=== PATIENT | male | born 2000 | race Caucasian/White ===

== ENCOUNTER 2019-02-12 10:01 | Emergency (ER) | payer SELFPAY ==
[2019-02-12 10:05] VITALS: BP 147/72; PULSE 98; RESP 16; TEMP 36.8; O2SAT 96
--- NOTE | 2019-02-12 10:14 | W.ED.GENAD ---
Discharge Plan Disposition Patient Disposition: HOME Condition: Stable Discharge Details Chief Complaint: GenMedical Clinical Impression: Tick bite Primary Care Provider: Ciara Chou ED Provider: Fuad Tan Discharge Instructions Instructions: Tick Bite (ED) Additional Instructions: The doxycycline may make you sensitive to the sun over the next 2 to 3 days time. Avoid prolonged exposure. Home to rest today. We will ask care management to help arrange a new physician for you in adult clinic. Return for any acute concern Medical Decision Making 18-year-old male presents after removing 2 ticks of her on an unknown amount of time last night after being in the [place]. He is well-appearing, afebrile, no evidence of rash. Discussed with him empirically prophylaxing against Lyme disease with 200 mg doxycycline single dose. He stable for discharge home. He wishes to establish primary care in an adult clinic and we will help to arrange this for him. HPI General Mode of arrival: ambulatory. Date/Time Provider Initiated Documentation: 02/12/19 10:02. Limitations to Documentation: no limitations. Information obtained by: patient. History of Present Illness 18 year old M presents to the emergency department with the chief complaint of Tick bite x2, described as moderate, and is localized to the upper extremity and lower extremity. Patient reports no radiation. Patient started experiencing this minute(s) and it has been now resolved. No relieving factors improve symptom(s), No exacerbating factors reported . Patient notes no other symptoms.; denies rash. Patient did receive the following treatments prior to arrival, none Related Data Allergies Allergy/AdvReac Type Severity Reaction Status Date / Time No Known Allergies Allergy Unverified 12/31/12 10:44 General Stated Complaint: GenMedical SATYA: 4 Review of Systems Review of Systems No fever, no rash, tics removed without incident. 4 systems reviewed and negative [facility] Medical History Asthma Developmental delay Failure to thrive Gastroesophageal reflux disease Nocturnal enuresis Family History Sister Asthma Grandmother Diabetes Heart disease Grandfather Hypertensive disorder, systemic arterial Hyperlipidemia Mental disorder Mother Mental disorder Social History Smoking/Tobacco Use Status: Never Alcohol Intake: current Alcohol Intake frequency: a few times a month Drug use: Never Substance use type: marijuana Details: marijuana 3x week Exam Narrative Exam Narrative: GEN: awake, alert, oriented 3. Pleasant, well groomed, interactive. HEAD: Normocephalic, atraumatic ENT: Mucous membranes moist, oropharynx unremarkable, External ear exam unremarkable EYES: PERRL, EOMI NECK: Full ROM, no ANAN, no menigismus CHEST/RESP: Nontender, clear to auscultation bilateral, no wheeze/rhonchi/rales CARDIOVASCULAR: RRR, no murmur EXT: Full ROM, no edema, no rash. Question subtle 1 mm area of insect bite right deltoid, left ankle Neuro: Grossly normal neurologic exam, conversant, interactive. Psych: Speech fluent, thoughts congruent, affect normal Course Vital Signs Temperature 36.8 C 02/12/19 10:05 Pulse 98 H 02/12/19 10:05 Respiratory Rate 16 02/12/19 10:05 Blood Pressure 147/72 H 02/12/19 10:05 Pulse Oximetry 96 02/12/19 10:05 Temperature 36.8 C 02/12/19 10:05 Temperature Source Temporal Artery Scan 02/12/19 10:05 Pulse 98 H 02/12/19 10:05 Respiratory Rate 16 02/12/19 10:05 Respiratory Effort Non-Labored 02/12/19 10:09 Respiratory Depth Normal 02/12/19 10:09 Blood Pressure 147/72 H 02/12/19 10:05 Pulse Oximetry 96 02/12/19 10:05 Oxygen Delivery Method Room Air 02/12/19 10:05 Oxygen Flow Rate 0 02/12/19 10:05 Pain Level 0 02/12/19 10:05
--- NOTE | 2019-02-12 10:17 | ED.GENADUL_ITS ---
Discharge Plan Disposition Patient Disposition: HOME Condition: Stable Discharge Details Chief Complaint: GenMedical Clinical Impression: Tick bite Primary Care Provider: Ciara Chou ED Provider: Fuad Tan Discharge Instructions Instructions: Tick Bite (ED) Additional Instructions: The doxycycline may make you sensitive to the sun over the next 2 to 3 days time. Avoid prolonged exposure. Home to rest today. We will ask care management to help arrange a new physician for you in adult clinic. Return for any acute concern Medical Decision Making 18-year-old male presents after removing 2 ticks of her on an unknown amount of time last night after being in the [place]. He is well-appearing, afebrile, no evidence of rash. Discussed with him empirically prophylaxing against Lyme disease with 200 mg doxycycline single dose. He stable for discharge home. He wishes to establish primary care in an adult clinic and we will help to arrange this for him. HPI General Mode of arrival: ambulatory . Date/Time Provider Initiated Documentation: 02/12/19 10:02 . Limitations to Documentation: no limitations . Information obtained by: patient . History of Present Illness 18 year old M presents to the emergency department with the chief complaint of Tick bite x2, described as moderate, and is localized to the upper extremity and lower extremity. Patient reports no radiation. Patient started experiencing this minute(s) and it has been now resolved. No relieving factors improve symptom(s), No exacerbating factors reported . Patient notes no other symptoms.; denies rash. Patient did receive the following treatments prior to arrival, none Related Data Allergies Allergy/AdvReac Type Severity Reaction Status Date / Time No Known Allergies Allergy Unverified 12/31/12 10:44 General Stated Complaint: GenMedical SATYA: 4 Review of Systems Review of Systems No fever, no rash, tics removed without incident. 4 systems reviewed and negative [facility] Medical History Asthma Developmental delay Failure to thrive Gastroesophageal reflux disease Nocturnal enuresis Family History Sister Asthma Grandmother Diabetes Heart disease Grandfather Hypertensive disorder, systemic arterial Hyperlipidemia Mental disorder Mother Mental disorder Social History Smoking/Tobacco Use Status: Never Alcohol Intake: current Alcohol Intake frequency: a few times a month Drug use: Never Substance use type: marijuana Details: marijuana 3x week Exam Narrative Exam Narrative: GEN: awake, alert, oriented 3. Pleasant, well groomed, interactive. HEAD: Normocephalic, atraumatic ENT: Mucous membranes moist, oropharynx unremarkable, External ear exam unremarkable EYES: PERRL, EOMI NECK: Full ROM, no ANNA, no menigismus CHEST/RESP: Nontender, clear to auscultation bilateral, no wheeze/rhonchi/rales CARDIOVASCULAR: RRR, no murmur EXT: Full ROM, no edema, no rash. Question subtle 1 mm area of insect bite right deltoid, left ankle Neuro: Grossly normal neurologic exam, conversant, interactive. Psych: Speech fluent, thoughts congruent, affect normal Course Vital Signs Temperature 36.8 C 02/12/19 10:05 Pulse 98 H 02/12/19 10:05 Respiratory Rate 16 02/12/19 10:05 Blood Pressure 147/72 H 02/12/19 10:05 Pulse Oximetry 96 02/12/19 10:05 Temperature 36.8 C 02/12/19 10:05 Temperature Source Temporal Artery Scan 02/12/19 10:05 Pulse 98 H 02/12/19 10:05 Respiratory Rate 16 02/12/19 10:05 Respiratory Effort Non-Labored 02/12/19 10:09 Respiratory Depth Normal 02/12/19 10:09 Blood Pressure 147/72 H 02/12/19 10:05 Pulse Oximetry 96 02/12/19 10:05 Oxygen Delivery Method Room Air 02/12/19 10:05 Oxygen Flow Rate 0 02/12/19 10:05 Pain Level 0 02/12/19 10:05
[2019-02-12] MEDS: Doxycycline Hyclate 100 MG CAP 200 MG PO (10:33)
[2019-02-12 10:35] VITALS: BP 127/67; PULSE 76; O2SAT 97
== END 2019-02-12 13:05 | disposition home or self-care (01) ==
LOC: ER 10:28
PROVIDERS: Emergency Provider Emergency Medicine; PCP Pediatrics
DX: S40.261A Insect bite (nonvenomous) of right shoulder, initial encounter (principal); S90.562A Insect bite (nonvenomous), left ankle, initial encounter; W57.XXXA Bitten or stung by nonvenomous insect and other nonvenomous arthropods, initial encounter
CPT/HCPCS: 99283

== ENCOUNTER 2019-08-08 15:25 | Emergency (ER) | payer SELFPAY ==
[2019-08-08 15:34] VITALS: BP 119/58; PULSE 68; RESP 16; TEMP 37.2; O2SAT 98
--- NOTE | 2019-08-08 16:05 | W.ED.GENAD ---
Discharge Plan Disposition Patient Disposition: HOME Condition: Improving Discharge Details Chief Complaint: EyeProblem Clinical Impression: Acute conjunctivitis of right eye, Stye Primary Care Provider: Ciara Chou ED Provider: Fuad Tan Home Meds and New Rx's Prescriptions: No Action No Known Home Meds RF: 0 Discharge Instructions Instructions: Conjunctivitis (ED) Additional Instructions: Warm soaks with a clean washcloth 3 times daily for 1 week. Take antibiotic ointment 3 times daily for 5 to 7 days time. Return if you develop pain with movement of the eye, change to vision, facial swelling, or any other acute concerns. Medical Decision Making 18-year-old male awoke with crusting of the right eye, mild injection which she states cleared with use of eyedrops and swelling of the right eyelid. Appears to have an early stye developing but I cannot rule out conjunctivitis. He will benefit from use of erythromycin as well as warm soaks. Do not feel other significant pathology is present. He is stable for discharge to home. HPI General Mode of arrival: ambulatory. Date/Time Provider Initiated Documentation: 08/08/19 15:33. Limitations to Documentation: no limitations. Information obtained by: patient. History of Present Illness 18 year old M presents to the emergency department with the chief complaint of Right eye upper lid swelling with mild crusting this morning, described as mild, and is localized to the eyes and right. Patient reports no radiation. Patient started experiencing this hour(s) and it has been constant. No relieving factors improve symptom(s), No exacerbating factors reported . Patient notes no other symptoms. and other (No change to vision, no headache, no pain with movement of the eye, no facial swelling.); denies fever/chills and headaches. Patient did receive the following treatments prior to arrival, none Related Data Home Medications Medication Instructions Recorded Confirmed Unknown [No Known Home Meds] 08/08/19 08/08/19 Allergies Allergy/AdvReac Type Severity Reaction Status Date / Time No Known Allergies Allergy Unverified 08/08/19 15:39 General Stated Complaint: EyeProblem SATYA: 4 Review of Systems Narrative: 6 systems reviewed and otherwise negative. The gentleman has otherwise been well. [facility]LY [facility] Social History Smoking/Tobacco Use Status: Current every day Tobacco Type: cigarettes Alcohol Intake: former Drug use: Occasionally Substance use type: marijuana Details: marijuana 3x week Do you feel safe at home: Yes Do you feel safe in your relationship?: Yes Exam Narrative Exam Narrative: GEN: awake, alert, oriented 3. Pleasant, well groomed, interactive. HEAD: Normocephalic, atraumatic ENT: Mucous membranes moist, oropharynx unremarkable, External ear exam unremarkable EYES: PERRL, EOMI. the right eye lid is mildly erythematous with subtle swelling. Sclera are clear (patient states he took eyedrops) NECK: Full ROM, no ANNA, no menigismus EXT: Full ROM Neuro: Grossly normal neurologic exam, conversant, interactive. Psych: Speech fluent, thoughts congruent, affect normal Course Vital Signs Vital signs: Vital Signs Temperature 37.2 C 08/08/19 15:34 Pulse 68 08/08/19 15:34 Respiratory Rate 16 08/08/19 15:34 Blood Pressure 119/58 L 08/08/19 15:34 Pulse Oximetry 98 08/08/19 15:34 Temperature 37.2 C 08/08/19 15:34 Temperature Source Tympanic 08/08/19 15:34 Pulse 68 08/08/19 15:34 Respiratory Rate 16 08/08/19 15:34 Respiratory Effort Non-Labored 08/08/19 15:36 Blood Pressure 119/58 L 08/08/19 15:34 Blood Pressure Position Sitting 08/08/19 15:34 Pulse Oximetry 98 08/08/19 15:34 Oxygen Delivery Method Room Air 08/08/19 15:34 Oxygen Flow Rate 0 08/08/19 15:34 Pain Level 2 08/08/19 15:34
[2019-08-08] MEDS: Erythromycin Ophth Oint 3.5 GM TUBE OP (16:13)
[2019-08-08 16:16] VITALS: PULSE 71; TEMP 36.7; O2SAT 98
== END 2019-08-08 16:18 | disposition home or self-care (01) ==
LOC: ER 16:22
PROVIDERS: Emergency Provider Emergency Medicine; PCP Pediatrics
DX: H10.31 Unspecified acute conjunctivitis, right eye (principal); H00.011 Hordeolum externum right upper eyelid
CPT/HCPCS: 99283

== ENCOUNTER 2019-09-08 20:42 | Emergency (ER) | payer SELFPAY ==
[2019-09-08 20:45] VITALS: BP 141/89; PULSE 61; RESP 16; TEMP 36.7; O2SAT 98
[2019-09-08 21:14] VITALS: BP 141/89; PULSE 61; RESP 16; TEMP 36.7; O2SAT 98
--- NOTE | 2019-09-08 21:18 | ED.GENADUL_ITS ---
Discharge Plan Disposition Patient Disposition: HOME Condition: Good Discharge Details Chief Complaint: Orthopedic Clinical Impression: Quadriceps strain Primary Care Provider: Ciara Chou ED Provider: Kortney Lawlre Home Meds and New Rx's Prescriptions: No Action No Known Home Meds RF: 0 Discharge Instructions Instructions: Muscle Strain (ED) Additional Instructions: Rest. Activities as tolerated. Elevate injury to prevent swelling. Ice massage to the area of discomfort for 15 min. 3-5 times daily. Crutches for rest and ambulation. I would recommend for 3 to 5 days Motrin 600 mg every 8 hours with food or Tylenol every 6 hours for soreness if needed over the counter for comfort. Do not take Motrin, ibuprofen or Advil this evening as he receives an injection of Toradol. Followup with orthopedic doctor as discussed if not improving in one week. Return for any worsening or concerns sooner if needed. Stand Alone Forms: Work Release Referrals: Fuad Reed MD [ [facility] STAFF PHYSICIAN] - Medical Decision Making Is a healthy 18-year-old patient presenting to the ER this evening for complaints of right thigh pain. 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 Patient reports he is experienced 2 to 3 days of right thigh pain which is increasingly bothersome now causing limited range of motion and limping gait. Patient ports very difficult to tolerate while working as he is quite active at work. Patient denies numbness, tingling or weakness associated. Patient has no associated abdominal pain on exam. Patient's exam is consistent with proximal thigh quadriceps/groin strain. Distal neurovascularly intact. No bony pain with palpation. I feel fracture is extremely unlikely as does this patient. Will defer any imaging studies at this time recommend conservative treatments for possible groin strain encouraged ice massage and rice. Crutches provided for ambulation. Work note provided as patient is having difficulty ambulating at work at this time. Recommended orthopedic follow-up for reevaluation for any persistence of complaints. Patient agrees with plan of care. The patient was stable and requested discharge. Prior to discharge, my usual and customary return precautions were reviewed with the patient - this included follow-up instructions and reasons to return to the Emergency Department if conditions worsens, does not improve as expected, or other new concerns arise. HPI General Date/Time Provider Initiated Documentation: 01/27/20 21:00 . HPI Narrative: Is a 18-year-old patient presenting for concerns of right thigh pain. Patient reports thigh pain for the last 2 to 3 days now very bothersome when walking. Patient reports pain is reproducible with palpation of the thigh or with range of motion of lifting the right thigh. Patient denies abdominal pain, groin pain or testicular complaints. Patient does recall slipping room when he was crouched on the ground in the kitchen and fell toward his right side while he was at work. Patient reports no immediate pain but pain did develop thereafter. Patient denies numbness, tingling or weakness of the leg. Patient has tried no medications at this time. Patient presents this evening after working as he reports pain is becoming very difficult to work with and quite bothersome. Denies back pain. Denies obvious swelling, skin changes or wounds. Related Data Home Medications Medication Instructions Recorded Confirmed Unknown [No Known Home Meds] 08/08/19 09/08/19 Allergies Allergy/AdvReac Type Severity Reaction Status Date / Time No Known Allergies Allergy Unverified 09/08/19 20:48 General Stated Complaint: Orthopedic SATYA: 4 Review of Systems All systems reviewed & are unremarkable except as noted in HPI and below Constitutional Constitutional: Denies headache(s) ENT Ears, Nose, Mouth, and Throat: Denies headache(s) and Denies neck pain Musculoskeletal Musculoskeletal: Reports abnormal gait (Limping), Denies back pain, Denies deformity, Denies limited range of motion, Denies neck pain, Denies numbness and Denies tingling Integumentary/Breasts Skin/Breast: Denies rash and Denies wounds Neurologic Neurologic: Reports abnormal gait (Limping), Denies headache(s), Denies numbness and Denies tingling [facility] Medical History Asthma outgrown Developmental delay prob ADHD, meds for a while, IEP when younger Failure to thrive resolved Gastroesophageal reflux disease as baby-resolved Nocturnal enuresis resolved Social History Smoking/Tobacco Use Status: Current every day Tobacco Type: cigarettes Alcohol Intake: former Drug use: Occasionally Substance use type: marijuana Details: marijuana 3x week Do you feel safe at home: Yes Do you feel safe in your relationship?: Yes Exam Narrative Exam Narrative: CONST: Healthy appearing patient, in no acute distress. Well hydrated. Alert and oriented. NECK: Normal visual inspection. FROM. Trachea midline. No Midline tenderness. GI: Abdomen is soft, nontender. No obvious swelling of the right inguinal area. MUSCULOSKELETAL: Normal Gait. FROM of all extremities. Moderate pain with palpation of the right proximal quadriceps and groin. No swelling. Pain with straight leg raise against resistance. No significant pain with internal/external rotation of the hip. No palpable tenderness of the hip. No distal thigh pain with palpation, knee pain with palpation. Distal neurovascularly intact. SKIN: Normal. Dry. No rashes. NEURO: Alert and awake. Speech clear. PSYCH: Normal affect. Cooperative. Course Vital Signs Vital signs: Vital Signs Temperature 36.7 C 09/08/19 20:45 Pulse 61 09/08/19 20:45 Respiratory Rate 16 09/08/19 20:45 Blood Pressure 141/89 H 09/08/19 20:45 Pulse Oximetry 98 09/08/19 20:45 Temperature 36.7 C 09/08/19 21:14 Temperature Source Skin 09/08/19 20:45 Pulse 61 09/08/19 21:14 Respiratory Rate 16 09/08/19 21:14 Respiratory Effort Non-Labored 09/08/19 20:48 Blood Pressure 141/89 H 09/08/19 21:14 Blood Pressure Position Sitting 09/08/19 20:45 Pulse Oximetry 98 09/08/19 21:14 Oxygen Delivery Method Room Air 09/08/19 20:45 Oxygen Flow Rate 0 09/08/19 20:45 Pain Level 5 09/08/19 21:14
[2019-09-08] MEDS: Ketorolac 15 MG/ML VIAL (21:22)
== END 2019-09-08 21:25 | disposition home or self-care (01) ==
PROVIDERS: Emergency Provider Physician Assistant; PCP Pediatrics
DX: S76.111A Strain of right quadriceps muscle, fascia and tendon, initial encounter (principal); W01.0XXA Fall on same level from slipping, tripping and stumbling without subsequent striking against object, initial encounter; Y99.0 Civilian activity done for income or pay
CPT/HCPCS: 96372; 99284; 99283; E0114; J1885

== ENCOUNTER 2020-06-26 11:33 | Emergency (ER) | payer SELFPAY ==
--- NOTE | 2020-06-26 11:44 | W.ED.GENAD ---
Discharge Plan Disposition Patient Disposition: HOME Condition: Good Discharge Details Clinical Impression: Encounter for laboratory testing for COVID-19 virus Primary Care Provider: Ciara Chou ED Provider: Armando Khoury Home Meds and New Rx's Prescriptions: No Action No Known Home Meds RF: 0 Discharge Instructions Additional Instructions: At this time you do not have the symptoms suggestive of coronavirus. Out of an abundance of precaution it would be reasonable to self quarantine yourself for a total of 14 days or until your test results return. It would be prudent to wear a mask at all times, always wash your hands frequently, follow-up closely with your primary care provider. You can always call their office first. If you notice any worsening symptoms, or any new symptoms such as vomiting, diarrhea, fever, chills, shortness of breath, chest pain, numbness, weakness, or fainting, please CALL and then return immediately to the emergency department for reevaluation. Please CALL first and then follow up with your primary care provider as soon as possible for reassessment and reevaluation. You will be contacted when your results have come back for your Covid test. If you have not heard back in the next 5 to 7 days please contact us and we can review your results with you. As always, it was a pleasure participating in your medical care today. Stand Alone Forms: PENDING COVID-19 TESTING Referrals: Ciara Chou MD [Primary Care Provider] - Discharge Data Discharge Date/Time-TO BE ENTERED AT DEPARTURE: 06/26/20 12:00 Medical Decision Making 19-year-old male with no significant past medical history except for tobacco use presents today for Covid testing. Patient states that he works at the [employer] and fellow employee just tested positive. He was required to come in and get tested before he can go back to work. He has no symptoms of cough, chest pain, shortness of breath. He denies any other complaints. He is here merely for the testing. Physical exam is unremarkable. I did offer outpatient testing on Sunday when the Covid test opens back up, but the patient would like to defer that and have testing today. Currently he has no concerning symptomatology requiring admission or further work-up. We will do Covid testing here. Recommended self quarantine, and return if symptoms present. I have extensively reviewed the treatment plan and discharge instructions with the patient. I have addressed all patient concerns at this time. The patient was made aware of what symptoms to monitor for that would warrant a return to the emergency department. Discussed the plan with the patient, they demonstrate verbal understanding and agreement with our assessment and plan at this time. HPI General Date/Time Provider Initiated Documentation: 06/26/20 11:35. HPI Narrative: 19-year-old male with no significant past medical history except for tobacco use presents today for Covid testing. Patient states that he works at the [employer] and fellow employee just tested positive. He was required to come in and get tested before he can go back to work. He has no symptoms of cough, chest pain, shortness of breath. He denies any other complaints. He is here merely for the testing. Related Data Home Medications Medication Instructions Recorded Confirmed Unknown [No Known Home Meds] 08/08/19 06/26/20 Allergies Allergy/AdvReac Type Severity Reaction Status Date / Time No Known Allergies Allergy Unverified 06/26/20 11:48 General SATYA: 4 Review of Systems All systems reviewed & are unremarkable except as noted in HPI and below PFSH Medical History Asthma outgrown Developmental delay prob ADHD, meds for a while, IEP when younger Failure to thrive resolved Gastroesophageal reflux disease as baby-resolved Nocturnal enuresis resolved Family History Sister Asthma Grandmother , CHF Diabetes onset in 's Heart disease triple by-pass Grandfather Hypertensive disorder, systemic arterial Hyperlipidemia Mental disorder alcoholism Mother Mental disorder depression Social History Smoking/Tobacco Use Status: Current every day Tobacco Type: cigarettes Smoking risk assessment performed?: Yes Alcohol Intake: former Drug use: Occasionally Substance use type: marijuana Details: marijuana 3x week Do you feel safe at home: Yes Do you feel safe in your relationship?: Yes Exam Narrative Exam Narrative: 1.Const: Well-nourished, Well-developed, appearing stated age 2.Eyes: PERRL, no conjunctival injection, and symmetrical lids. 3.ENT: Atraumatic external nose and ears. Moist MM. Neck: Symmetric, trachea midline, No thyromegaly. 4.CVS: +S1/S2, No murmurs or gallops. Peripheral pulses 2+ and equal in all extremities. Brisk capillary refill in all extremities. 5.RESP: Unlabored respiratory effort. Clear to auscultation bilaterally. No wheezes rales or rhonchi 6.GI: Soft, Nontender/Nondistended, No hepatosplenomegaly. No guarding or rebound. 7.MSK: Normocephalic/Atraumatic, Extremities w/o deformity or ttp No cyanosis or clubbing, Normal movement of all extremities 8.Skin: Warm, Dry. No rashes or lesions. 9.Neuro: mechanic general operational test II-XII grossly intact. Sensation grossly intact, no focal neurologic deficits. 10.Psych: (AAO) x3. Appropriate mood and affect
[2020-06-26 11:45] VITALS: BP 119/55; PULSE 78; RESP 16; TEMP 36.7; O2SAT 97
[2020-06-26 12:22] VITALS: RESP 16
[2020-06-28 13:07] LABS: SARS-CoV-2 RNA Not Detected (NotDetected); SARS-CoV-2 RNA Source Nasopharynx
== END 2020-06-26 12:00 | disposition home or self-care (01) ==
LOC: ER 11:53
PROVIDERS: Emergency Provider Student in an Organized Health Care Education/Training Program; PCP Pediatrics
DX: Z03.818 Encounter for observation for suspected exposure to other biological agents ruled out (principal)
CPT/HCPCS: 99281; U0003

== ENCOUNTER 2021-04-09 15:06 | Emergency (ER) | payer SELFPAY ==
[2021-04-09 15:19] VITALS: BP 136/74; PULSE 61; TEMP 36.7; O2SAT 100
--- NOTE | 2021-04-09 15:33 | W.ED.GENAD ---
Discharge Plan Disposition Patient Disposition: HOME Condition: Good Discharge Details Clinical Impression: Right knee sprain Primary Care Provider: Maria FernandaLocal ED Provider: Armando Khoury Home Meds and New Rx's Prescriptions: No Action No Known Home Meds RF: 0 Discharge Instructions Instructions: Knee Sprain (ED) Additional Instructions: Please take 800 mg of ibuprofen every 6 hours and 1000 mg of Tylenol every 6 hours as needed for pain. Please keep the area wrapped with an Bryan wrap to give stability to the area. Stay off of it today, and be gentle with it for the next 1 to 2 weeks as it heals. If you notice any worsening of your symptoms, or any new symptoms such as vomiting, diarrhea, fever, chills, shortness of breath, chest pain, numbness, weakness, or fainting , please return immediately to the emergency department for reevaluation. Please follow up with your primary care provider as soon as possible for reassessment and reevaluation. As always, it was a pleasure participating in your medical care today. Stand Alone Forms: Work Release Medical Decision Making 20-year-old male with no significant past medical history presents today for evaluation of right knee pain. Patient states that he was working with a keg earlier today when it slipped and hit his right knee, bending it slightly backwards, and then landing on his foot. He had no pain in his knee or foot at that time, but gradually as the day has gone on he has had mild pain in his knee when he ambulates. He denies any other complaints. He denies any numbness or tingling. He has not taken any medication for the pain. Physical exam demonstrates no bony tenderness over the knee at all. No restriction to movement, no crepitus, bedside ultrasound demonstrates no significant abnormality aside for a small minimal effusion in the posterior aspect likely suggestive of a mild Lira's cyst. No other abnormalities on exam. No signs of ligamentous laxity. Suspect mild sprain. Recommend Tylenol and Motrin. Will give Motrin here. Patient's knee has been Bryan wrap. Discussed red flags which return. I have extensively reviewed the treatment plan and discharge instructions with the patient. I have addressed all patient concerns at this time. The patient was made aware of what symptoms to monitor for that would warrant a return to the emergency department. Discussed the plan with the patient, they demonstrate verbal understanding and agreement with our assessment and plan at this time. The documentation in this chart was dictated using [employer] dictation software. Please excuse any dictation errors. HPI General Date/Time Provider Initiated Documentation: 04/09/21 15:26. HPI Narrative: 20-year-old male with no significant past medical history presents today for evaluation of right knee pain. Patient states that he was working with a keg earlier today when it slipped and hit his right knee, bending it slightly backwards, and then landing on his foot. He had no pain in his knee or foot at that time, but gradually as the day has gone on he has had mild pain in his knee when he ambulates. He denies any other complaints. He denies any numbness or tingling. He has not taken any medication for the pain. Related Data Home Medications Medication Instructions Recorded Confirmed Unknown [No Known Home Meds] 08/08/19 04/09/21 Allergies Allergy/AdvReac Type Severity Reaction Status Date / Time No Known Allergies Allergy Unverified 04/09/21 15:22 General Stated Complaint: Orthopedic SATYA: 4 Review of Systems All systems reviewed & are unremarkable except as noted in HPI and below [facility] Medical History Asthma outgrown Developmental delay prob ADHD, meds for a while, IEP when younger Failure to thrive resolved Gastroesophageal reflux disease as baby-resolved Nocturnal enuresis resolved Family History Sister Asthma Grandmother , CHF Diabetes onset in 20's Heart disease triple by-pass Grandfather Hypertensive disorder, systemic arterial Hyperlipidemia Mental disorder alcoholism Mother Mental disorder depression Social History Smoking/Tobacco Use Status: Current every day Tobacco Type: cigarettes Smoking risk assessment performed?: Yes Alcohol Intake: former Drug use: Occasionally Substance use type: marijuana Details: marijuana 3x week Do you feel safe at home: Yes Do you feel safe in your relationship?: Yes Exam Narrative Exam Narrative: 1.Const: Well-nourished, Well-developed, appearing stated age 2.Eyes: PERRL, no conjunctival injection, and symmetrical lids. 3.ENT: Atraumatic external nose and ears. Moist MM. Neck: Symmetric, trachea midline, No thyromegaly. 4.CVS: +S1/S2, No murmurs or gallops. Peripheral pulses 2+ and equal in all extremities. Brisk capillary refill in all extremities. 5.RESP: Unlabored respiratory effort. Clear to auscultation bilaterally. No wheezes rales or rhonchi 6.GI: Soft, Nontender/Nondistended, No hepatosplenomegaly. No guarding or rebound. 7.MSK: Normocephalic/Atraumatic, Extremities w/o deformity or ttp No cyanosis or clubbing, Normal movement of all extremities Right knee: The knee is stable to varus, valgus, and anterior drawer stress. No deformity. Patellar grind test is negative. Dayday test is negative for pain. Patient is able to walk without difficulty. No edema or warmth to the joint. No ttp to the patella, tibial plateau, or fibular head. Bedside ultrasound was performed and demonstrates a very minimal effusion on evaluation of the posterior aspect of the knee, potentially a small Lira's cyst. No other abnormalities. Right foot demonstrates no tenderness to palpation over any component. Patient does not limp. 8.Skin: Warm, Dry. No rashes or lesions. 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 Sensation grossly intact, no focal neurologic deficits. 10.Psych: (AAO) x3. Appropriate mood and affect Course Vital Signs Vital signs: Vital Signs Temperature 36.7 C 04/09/21 15:19 Pulse 61 04/09/21 15:19 Blood Pressure 136/74 04/09/21 15:19 Pulse Oximetry 100 04/09/21 15:19 Temperature 36.7 C 04/09/21 15:19 Temperature Source Temporal Artery Scan 04/09/21 15:19 Pulse 61 04/09/21 15:19 Respiratory Effort Non-Labored 04/09/21 15:21 Blood Pressure 136/74 04/09/21 15:19 Blood Pressure Position Sitting 04/09/21 15:19 Pulse Oximetry 100 04/09/21 15:19 Pain Level 5 04/09/21 15:19
[2021-04-09] MEDS: Ibuprofen 800 MG TAB (15:40)
== END 2021-04-09 15:40 | disposition home or self-care (01) ==
PROVIDERS: Emergency Provider Student in an Organized Health Care Education/Training Program
DX: S83.8X1A Sprain of other specified parts of right knee, initial encounter (principal); W22.8XXA Striking against or struck by other objects, initial encounter; Y99.0 Civilian activity done for income or pay
CPT/HCPCS: 99283

== ENCOUNTER 2021-06-12 08:31 | Emergency (ER) | payer SELFPAY ==
[2021-06-12 08:39] VITALS: BP 128/61; PULSE 84; RESP 16; TEMP 36.2; O2SAT 100
--- NOTE | 2021-06-12 08:45 | W.ED.GENAD ---
Discharge Plan Disposition Patient Disposition: HOME Condition: Good Discharge Details Clinical Impression: Viral URI with cough Primary Care Provider: Maria Fernanda,[facility] ED Provider: Armando Khoury Home Meds and New Rx's Prescriptions: New loratadine 10 mg capsule 10 mg PO DAILY Qty: 10 RF: 0 benzonatate [Tessalon Perles] 100 mg capsule 100 mg PO TID Qty: 20 RF: 0 No Action No Known Home Meds RF: 0 Discharge Instructions Instructions: Upper Respiratory Infection (ED) Additional Instructions: At this time your signs and symptoms are consistent with a viral upper respiratory infection. We will be testing you for the coronavirus and flu. We will contact you with the test results if they are positive. In the meantime please rest, and take the medication as prescribed. It is been sent to your local pharmacy. Please also take 1 to 2 tablespoons of honey every 4-6 hours for your sore throat and cough. It would be amlonte to continue to cut down on your smoking with a goal of stopping to help prevent any worsening of your symptoms. Additionally please google [employer] for instructions on techniques to help alleviate your nasal congestion. Please drink plenty of fluids, get plenty of rest. If you notice any worsening of your symptoms, or any new symptoms such as vomiting, diarrhea, fever, chills, shortness of breath, chest pain, numbness, weakness, or fainting , please return immediately to the emergency department for reevaluation. Please follow up with your primary care provider as soon as possible for reassessment and reevaluation. As always, it was a pleasure participating in your medical care today. Stand Alone Forms: Work Release Discharge Data Discharge Date/Time-TO BE ENTERED AT DEPARTURE: 06/12/21 08:52 Medical Decision Making This is a 20-year-old male with a past medical history of tobacco abuse who presents today for evaluation of congestion, cough and malaise. Patient states that for the past week he has felt somewhat rundown compared to normal, and over the last 24 hours he has also had runny nose, congestion and a mild nonproductive cough. He has decreased on his tobacco abuse recently. He denies any hemoptysis, chest pain, or fever. He denies any known exposure to coronavirus. He has not had his coronavirus vaccine. No other complaints at this time. No other modifying factors. Physical exam demonstrates notably clear lung sounds, no swollen tonsils, no evidence of strep. No clinical evidence of pneumonia whatsoever. Oxygenation is excellent at 100% on room air. No significant tachycardia. Suspect viral upper respiratory infection. Covid less likely. We will test for flu and Covid, give Tessalon Perles, loratadine, recommend close follow-up if symptoms worsen. Patient will be given work note for today and tomorrow. Discussed red flags which to return. We will contact him with the results. I have extensively reviewed the treatment plan and discharge instructions with the patient. I have addressed all patient concerns at this time. The patient was made aware of what symptoms to monitor for that would warrant a return to the emergency department. Discussed the plan with the patient, they demonstrate verbal understanding and agreement with our assessment and plan at this time. The documentation in this chart was dictated using [employer] dictation software. Please excuse any dictation errors. Patient's Covid test and influenza test both came back negative. I did contact the patient and informed him of his results. I did leave a message. HPI General Date/Time Provider Initiated Documentation: 06/12/21 08:31. HPI Narrative: This is a 20-year-old male with a past medical history of tobacco abuse who presents today for evaluation of congestion, cough and malaise. Patient states that for the past week he has felt somewhat rundown compared to normal, and over the last 24 hours he has also had runny nose, congestion and a mild nonproductive cough. He has decreased on his tobacco abuse recently. He denies any hemoptysis, chest pain, or fever. He denies any known exposure to coronavirus. He has not had his coronavirus vaccine. No other complaints at this time. No other modifying factors. Related Data Home Medications Medication Instructions Recorded Confirmed Unknown [No Known Home Meds] 08/08/19 06/12/21 benzonatate [Tessalon Perles] 100 mg PO TID #20 cap 06/12/21 loratadine 10 mg PO DAILY #10 cap 06/12/21 Previous Rx's Medication Instructions Recorded benzonatate [Tessalon Perles] 100 mg PO TID #20 cap 06/12/21 loratadine 10 mg PO DAILY #10 cap 06/12/21 Allergies Allergy/AdvReac Type Severity Reaction Status Date / Time No Known Allergies Allergy Unverified 06/12/21 08:46 General SATYA: 4 Review of Systems All systems reviewed & are unremarkable except as noted in HPI and below PFSH Medical History Asthma outgrown Developmental delay prob ADHD, meds for a while, IEP when younger Failure to thrive resolved Gastroesophageal reflux disease as baby-resolved Nocturnal enuresis resolved Family History Sister Asthma Grandmother , CHF Diabetes onset in 's Heart disease triple by-pass Grandfather Hypertensive disorder, systemic arterial Hyperlipidemia Mental disorder alcoholism Mother Mental disorder depression Social History Smoking/Tobacco Use Status: Current every day Tobacco Type: e-cigarettes Smoking risk assessment performed?: Yes Alcohol Intake: former Drug use: Daily Substance use type: marijuana Do you feel safe at home: Yes Do you feel safe in your relationship?: Yes Exam Narrative Exam Narrative: 1.Const: Well-nourished, Well-developed, appearing stated age 2.Eyes: PERRL, no conjunctival injection, and symmetrical lids. 3.ENT: Atraumatic external nose and ears. Moist MM. Neck: Symmetric, trachea midline, No thyromegaly. No significant erythema in the posterior oropharynx. No tonsillar exudate. No tonsillar enlargement. 4.CVS: +S1/S2, No murmurs or gallops. Peripheral pulses 2+ and equal in all extremities. Brisk capillary refill in all extremities. 5.RESP: Unlabored respiratory effort. Clear to auscultation bilaterally. No wheezes rales or rhonchi 6.GI: Soft, Nontender/Nondistended, No hepatosplenomegaly. No guarding or rebound. 7.MSK: Normocephalic/Atraumatic, Extremities w/o deformity or ttp No cyanosis or clubbing, Normal movement of all extremities 8.Skin: Warm, Dry. No rashes or lesions. 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 Sensation grossly intact, no focal neurologic deficits. 10.Psych: (AAO) x3. Appropriate mood and affect
[2021-06-12 09:49] LABS: COVID-19 PCR Negative (Negative)
== END 2021-06-12 08:52 | disposition home or self-care (01) ==
PROVIDERS: Emergency Provider Student in an Organized Health Care Education/Training Program
DX: J06.9 Acute upper respiratory infection, unspecified (principal); B34.9 Viral infection, unspecified; R05.1 Acute cough; F17.210 Nicotine dependence, cigarettes, uncomplicated; Z20.822 Contact with and (suspected) exposure to COVID-19; Z03.818 Encounter for observation for suspected exposure to other biological agents ruled out
CPT/HCPCS: 87449; 87635; 99283; 99284

== ENCOUNTER 2023-03-21 10:05 | Outpatient (CLI) | payer OTHER, SELFPAY ==
--- NOTE | 2023-03-21 09:59 | DI.RAD_ITS ---
Exam(s) XR RIBS RT W PA LAT CHEST CLINICAL HISTORY: rib pain from work injury, rib pain rt side, Y99.0, R07.81. COMPARISON: No exams were available for comparison TECHNIQUE:: PA and lateral views of the chest and 2 views of the right ribs were performed. FINDINGS: LUNGS:Clear. No pleural abnormality seen. HEART: Normal. MEDIASTINUM: Normal. BONES: No displaced rib fracture is seen. No bony destructive lesion is seen. OTHER FINDINGS: None. IMPRESSION: 1. Unremarkable radiographic appearance of the right ribs. 2. No acute pulmonary findings.
== END 2023-03-21 10:25 ==
PROVIDERS: Visit Provider Nurse Practitioner Family
DX: R07.81 Pleurodynia (principal); Y99.0 Civilian activity done for income or pay
CPT/HCPCS: 71046; 71100

== ENCOUNTER 2025-01-08 20:04 | Emergency (ER) | payer BC, SELFPAY ==
--- NOTE | 2025-01-08 20:00 | RT.EKG_ITS ---
APPROVED REPORT Exam: Resting ECG Reason for Exam: Chest Pain Patient Location: E HR:87 bpm ECG Measurements Heart Rate 87 AXIS UT 125 P 81 QRSd 96 QRS 84 QT 343 T 52 QTc 414 Conclusion Sinus rhythm, rate 87 No interval abnormalities Large voltage Small ST elevation, likely SEN, no reciprocal changes to suggest STEMI No priors available for comparison
[2025-01-08 20:08] VITALS: BP 145/76; PULSE 80; RESP 24; TEMP 36.9; O2SAT 96
[2025-01-08 20:32] VITALS: RESP 16
--- NOTE | 2025-01-08 20:41 | W.ED.GENAD ---
Discharge Plan Disposition Patient Disposition: Home Condition: Stable Discharge Details Clinical Impression: Chest pain of uncertain etiology Primary Care Provider: Unknown,Unknown ED Provider: Armando Sampson Home Meds and New Rx's Prescriptions: No Action No Known Home Meds Discharge Instructions Instructions: Costochondritis, Pleuritic Chest Pain ED Additional Instructions: You were seen in the emergency department for your right-sided chest pain that has been intermittent for couple weeks, your EKG is normal, blood test show there is no damage to your heart or blood clot in the lungs, you have mildly pleuritic anterior right chest pain consistent with costochondritis or possibly pleurisy. Discharge Data Discharge Date/Time-TO BE ENTERED AT DEPARTURE: 01/08/25 22:21 HPI General Date/Time Provider Initiated Documentation: 01/08/25 20:41. HPI Narrative: 24 year-old male presents to ED today by POV/ambulating with a chief complaint of R sided intermittent chest pain with onset for the past couple weeks. Quality described as aching, worse with certain movements and breaths, no radiation to fever, cough, hemoptysis, diaphoresis, questions some lightheadedness, denies headache. Severity is described as 3/10. Palliating factors include deep slow breathing has improved it. Provoking factors include nothing specific. Events leading up to the incident/Associated Symptoms: Patient vapes, smokes marijuana and occasionally smokes tobacco. Patient not anticoagulated. Related Data Home Medications ?Medication ?Instructions ?Recorded ?Confirmed Unknown [No Known Home Meds] 08/08/19 01/08/25 Allergies Allergy/AdvReac Type Severity Reaction Status Date / Time No Known Allergies Allergy Unverified 01/08/25 20:10 General Stated Complaint: Chest Pain SATYA: 3 Review of Systems All systems reviewed & are unremarkable except as noted in HPI and below Exam Narrative Exam Narrative: GENERAL APPEARANCE: Well-nourished, non-toxic, awake and alert, atraumatic, no acute distress. SKIN: Warm, pink, dry, intact, without rashes/lesions/ulcerations. HEAD: Normocephalic, atraumatic, normal hair distribution for gender/age. EYES: Normal conjunctiva, no exudates on lids/lashes. ENT: Nares patent, no circumoral cyanosis, no facial swelling NECK: Supple, trachea midline, painless cervical ROM. LUNGS/CHEST: Lungs CTA bilaterally-no focally diminished or absent lungs, non-labored respirations, normal A/P diameter, symmetrical expansion, no chest wall deformity, R sided pleuritic tenderness at sterno-costal junction mid-ribs without crepitus HEART (CV/PV): Regular rate and rhythm without murmur, no peripheral edema, no JVD. ABDOMEN: Soft, non-distended, no guarding. MSK: Normal ROM, no swelling/deformity to bilateral UEs or LEs, moving all extremities without weakness, no cyanosis, spine midline without tenderness, normal curvature. NEURO: Mental Status AAOx4 - alert to person, place, time, events No facial droop, no forehead involvement. Motor: No focal weakness - strength 5/5 in bilateral UEs and LEs, proximal and distal, symmetric. Sensory: sensation intact to light touch globally. Gait normal: patient ambulated without ataxia into ED room. PSYCH: euthymic, cooperative, pleasant, appropriate speech Course Vital Signs Vital signs: Vital Signs Temperature 36.9 C 01/08/25 20:08 Pulse 80 01/08/25 20:08 Respiratory Rate 24 01/08/25 20:08 Blood Pressure 145/76 H 01/08/25 20:08 Pulse Oximetry 96 01/08/25 20:08 Temperature 36.9 C 01/08/25 20:08 Pulse 80 01/08/25 20:08 Respiratory Rate 16 01/08/25 20:32 Respiratory Effort Normal 01/08/25 20:32 Respiratory Depth Normal 01/08/25 20:32 Respiratory Pattern Normal 01/08/25 20:32 Blood Pressure 145/76 H 01/08/25 20:08 Blood Pressure Position Sitting 01/08/25 20:08 Pulse Oximetry 96 01/08/25 20:08 Oxygen Delivery Method Room Air 01/08/25 20:08 Oxygen Flow Rate 0 01/08/25 20:08 Medical Decision Making This dictation utilizes [id number] dictation software and may contain unedited grammatical errors. 24 year-old male presents to ED today by POV/ambulating with a chief complaint of R sided intermittent chest pain with onset for the past couple weeks. Quality described as aching, worse with certain movements and breaths, no radiation to fever, cough, hemoptysis, diaphoresis, questions some lightheadedness, denies headache. Severity is described as 3/10. Palliating factors include deep slow breathing has improved it. Provoking factors include nothing specific. Events leading up to the incident/Associated Symptoms: Patient vapes, smokes marijuana and occasionally smokes tobacco. Patients' medical history: Asthma, GERD. Family and social history: Regularly vapes tobacco, smokes marijuana, denies heavy EtOH use, occasionally smokes tobacco. Pertinent exam findings / vital signs include right-sided fourth rib mild tenderness without crepitus or paradoxical motion, lungs CTA diffusely without any focally diminished or absent lung sounds, no rhonchi/rales/wheezes diffusely, benign abdomen, neuro intact, nontoxic and afebrile. Differential / pathologies of concern include costochondritis, pleurisy, ACS, PE, pneumonia, pneumothorax. Diagnostic studies of: - CBC, CMP, troponin, D-dimer, EKG, XR chest. - CBC shows no acute abnormality - CMP without acute abnormality - Troponin negative with reliable onset - Lipase negative - D-dimer negative - EKG shows normal sinus rhythm with early repolarization pattern, P waves well but narrow complex QRS with normal axis, good R wave progression, high amplitude likely leading to patient's body habitus, normal intervals - XR Chest negative Interventions of: - None. ED Course/Assessment/Plan: 24-year-old otherwise healthy male presents with some intermittent right-sided chest pain for 2 weeks, consistent with either pleurisy or costochondritis, counseled him on using Tylenol and ibuprofen and gentle heat compresses to the area, he notes relief with some massage and deep breathing exercises making this likely musculoskeletal in nature, counseled on strict return criteria for any return of chest pain with shortness of breath, sweating, near fainting or other emergent concern. Findings not consistent with PE, pneumothorax, ACS, pneumonia. Disposition of chest pain of uncertain etiology. Patient verbalized understanding of the plan and return to ED criteria and engaged in shared decision making. Medical Records Medical records reviewed: Yes I reviewed the patient's medical records. Imaging Data Radiologic Study: Attestation: I personally reviewed and interpreted this imaging study as follows: Imaging: X-Ray Radiologist's impression: Exam: XR Chest Exam date and time: 01/08/2025 10:14 PM Age: 24 years old Clinical indication: Chest pressure; Right sided chest pain TECHNIQUE: Imaging protocol: Radiologic exam of the chest. Views: 2 views. COMPARISON: CR XR RIBS RT W PA LAT CHEST 03/21/2023 9:51 AM FINDINGS: Lungs: Unremarkable. No consolidation. Pleural spaces: Unremarkable. No pleural effusion. No pneumothorax. Heart/Mediastinum: Unremarkable. No cardiomegaly. Bones/joints: Unremarkable. IMPRESSION: No acute findings. Dictated and Authenticated by: Ramakrishna Ferrara MD. Lab Data Lab results reviewed: Yes I reviewed the patient's lab results. Labs: Laboratory Tests Range/Units 01/08/25 20:56 WBC (4.4-10.8) 10^3/uL 7.52 RBC (4.36-5.78) 10^6/uL 4.76 Hgb (13.5-17.5) g/dL 14.4 Hct (40.0-50.0) % 42.3 MCV (80-95) fL 89 MCH (27.0-33.0) pg 30.3 MCHC (32.0-36.0) % 34.0 RDW (11.8-14.1) % 12.1 Plt Count (130-400) 10^3/uL 300 MPV (8.0-11.0) fL 9.3 Immature Gran % % 0.1 Neutrophils % % 49.3 Lymphocytes % % 37.0 Monocytes % % 6.3 Eosinophils % % 6.5 Basophils % % 0.8 Nucleated RBC % (0.0-0.3) % 0.0 Absolute Neutrophils (1.2-6.7) 10^3/uL 3.71 Absolute Lymphocytes (1.2-3.4) 10^3/uL 2.78 Absolute Monocytes (0.1-0.8) 10^3/uL 0.47 Absolute Eosinophils (0.0-0.7) 10^3/uL 0.49 Absolute Basophils (0.0-0.2) 10^3/uL 0.06 D-Dimer (<500) ng/mlFEU 82 Sodium (136-145) mmol/L 141 Potassium (3.5-5.1) mmol/L 3.7 Chloride (98-107) mmol/L 102 Carbon Dioxide (21.0-32.0) mmol/L 32.2 H Anion Gap (3-11) mmol/L 6.8 BUN (7-18) mg/dL 16 Creatinine (0.70-1.30) mg/dL 0.9 Est GFR (CKD-EPI 2020) (mL/min/1.73m2) 120.80 Glucose (74-106) mg/dL 81 Calcium (8.5-10.1) mg/dL 9.4 Total Bilirubin (0.2-1.0) mg/dL 0.4 AST (15-37) U/L 30 ALT (16-63) U/L 37 Alkaline Phosphatase (46-116) U/L 64 Troponin I (<or=76) ng/L 6 Total Protein (6.4-8.2) g/dL 7.1 Albumin (3.4-5.0) g/dL 4.2 Lipase (<78) U/L 18 Quality:[facility] Health Related Social Needs: No Data to Display PFSH All Active Problems (Updated 01/08/25 @ 21:46 by ISABELLE Perez) Chest pain of uncertain etiology (Acute) Viral URI with cough (Acute) Right knee sprain (Acute) Encounter for laboratory testing for COVID-19 virus (Acute) Medical History (Updated 01/08/25 @ 21:46 by ISABELLE Perez) Asthma outgrown Gastroesophageal reflux disease as baby-resolved Developmental delay prob ADHD, meds for a while, IEP when younger Failure to thrive resolved Nocturnal enuresis resolved Family History Sister Asthma Grandmother , CHF Diabetes onset in 20's Heart disease triple by-pass Grandfather Hypertensive disorder, systemic arterial Hyperlipidemia Mental disorder alcoholism Mother Mental disorder depression Social History Smoking/Tobacco Use Status: Current every day Tobacco Type: e-cigarettes Smoking risk assessment performed?: Yes Alcohol Intake: former Drug use: Daily Substance use type: marijuana Do you feel safe at home: Yes Do you feel safe in your relationship?: Yes
[2025-01-08 21:08] LABS: Abs Immature Grans 0.01 10^3/uL (0.0-0.06); Absolute Basophil Count 0.06 10^3/uL (0.0-0.2); Absolute Eosinophil Count 0.49 10^3/uL (0.0-0.7); Absolute Lymphocyte Count 2.78 10^3/uL (1.2-3.4); Absolute Monocyte Count 0.47 10^3/uL (0.1-0.8); Absolute Neutrophil Count 3.71 10^3/uL (1.2-6.7); Basophils % 0.8 %; Eosinophils % 6.5 %; HCT 42.3 % (40.0-50.0); HGB 14.4 g/dL (13.5-17.5); Immature Grans % 0.1 %; MCH 30.3 pg (27.0-33.0); MCV 89 fL (80-95); MPV 9.3 fL (8.0-11.0); Monocytes % 6.3 %; Neutrophils % 49.3 %; Platelet Count 300 10^3/uL (130-400); RBC 4.76 10^6/uL (4.36-5.78); RDW 12.1 % (11.8-14.1); RDW-SD 39.4 fL; WBC 7.52 10^3/uL (4.4-10.8)
[2025-01-08 21:28] LABS: ALT 37 U/L (16-63); AST 30 U/L (15-37); Albumin 4.2 g/dL (3.4-5.0); Alkaline Phosphatase 64 U/L (46-116); Anion Gap 6.8 mmol/L (3-11); BUN 16 mg/dL (7-18); Bilirubin, Total 0.4 mg/dL (0.2-1.0); CO2 32.2 mmol/L (21.0-32.0); CREATININE 0.9 mg/dL (0.70-1.30); Calcium 9.4 mg/dL (8.5-10.1); Chloride 102 mmol/L (98-107); Glucose 81 mg/dL (74-106); Lipase 18 U/L (<78); Potassium 3.7 mmol/L (3.5-5.1); Sodium 141 mmol/L (136-145); Total Protein 7.1 g/dL (6.4-8.2); Troponin I 6 ng/L (<or=76)
[2025-01-08 21:34] LABS: D-Dimer 82 ng/mlFEU (<500)
--- NOTE | 2025-01-08 22:14 | DI.RAD_ITS ---
Exam(s) XR CHEST 2V PA LATERAL EXAM: XR CHEST 2V PA LATERAL CLINICAL HISTORY: R sided chest pain. TECHNIQUE: 2D digital imaging was performed. COMPARISON: CR XR RIBS RT W PA LAT CHEST from 03/21/2023 FINDINGS: 2 views: Heart size is normal. The mediastinum is not widened. Lungs are clear. No infiltrates nor pleural effusions. IMPRESSION: No acute pulmonary findings. DATA REPOSITORY: RADIATION DOSE DELIVERED:
[2025-01-08 22:21] VITALS: BP 137/68; PULSE 59; RESP 18; TEMP 36.9; O2SAT 100
--- NOTE | 2025-01-08 22:37 | DI.VRAD_ITS ---
PROCEDURE INFORMATION: Exam: XR Chest Exam date and time: 01/08/2025 10:14 PM Age: 24 years old Clinical indication: Chest pressure; Right sided chest pain TECHNIQUE: Imaging protocol: Radiologic exam of the chest. Views: 2 views. COMPARISON: CR XR RIBS RT W PA LAT CHEST 03/21/2023 9:51 AM FINDINGS: Lungs: Unremarkable. No consolidation. Pleural spaces: Unremarkable. No pleural effusion. No pneumothorax. Heart/Mediastinum: Unremarkable. No cardiomegaly. Bones/joints: Unremarkable. IMPRESSION: No acute findings. Dictated and Authenticated by: Ramakrishna Ferrara MD. Orderin Camilla Roberts MD
== END 2025-01-08 22:21 | disposition home or self-care (01) ==
LOC: ER 22:26
PROVIDERS: Emergency Provider Physician Assistant
DX: R07.9 Chest pain, unspecified (principal); K21.9 Gastro-esophageal reflux disease without esophagitis; F17.210 Nicotine dependence, cigarettes, uncomplicated; F17.290 Nicotine dependence, other tobacco product, uncomplicated
CPT/HCPCS: 80053; 83690; 93005; 99285; 71046; 84484; 85025; 85379; 93010; 99284